=== PATIENT | male | born 1945 | race Two or more races ===

== ENCOUNTER → 2017-02-19 | Outpatient (CLI) | payer MEDICARE | END | disposition home or self-care (01) | LOC: CFH 12:03 | PROVIDERS: ATTEND Family Medicine | DX: M94.262 Chondromalacia, left knee (principal); M25.462 Effusion, left knee; M65.861 Other synovitis and tenosynovitis, right lower leg; M23.042 Cystic meniscus, anterior horn of lateral meniscus, left knee; S83.512A Sprain of anterior cruciate ligament of left knee, initial encounter; S83.272A Complex tear of lateral meniscus, current injury, left knee, initial encounter; X58.XXXA Exposure to other specified factors, initial encounter; Y93.89 Activity, other specified; Y92.89 Other specified places as the place of occurrence of the external cause; Y99.8 Other external cause status ==